=== PATIENT | male | born 1940 | race African-American/Black ===

== ENCOUNTER 2016-03-30 15:51 | Day surgery (SDC) | payer OTHER ==
[~2016-03-30] VITALS: Ht 172.7 cm; Wt 50.0 kg
[2016-03-31 06:36] VITALS: Ht 172.7 cm; Wt 50.0 kg
[2016-03-31] MEDS ORDERED: ACYC400T2 PO (06:47)
[2016-03-31] MEDS ORDERED: PRED10TA PO (06:47)
[2016-03-31] MEDS ORDERED: ASPI-664 PO (06:47)
[2016-03-31] MEDS ORDERED: MIRT-30 PO (06:47)
[2016-03-31] MEDS ORDERED: ATOR10TA65 PO (06:47)
[2016-03-31] MEDS ORDERED: EVER0.5T PO (06:47)
[2016-03-31] MEDS ORDERED: METO-448 PO (06:47)
[2016-03-31] MEDS ORDERED: CNC30T PO (06:47)
[2016-03-31] MEDS ORDERED: TACR1CAP26 PO (06:47)
--- NOTE | 2016-03-31 09:06 | OPR ---
DATE OF OPERATION: 03/30/2016 PREOPERATIVE DIAGNOSIS: 1. Renal failure. 2. Dysfunctional left upper extremity arteriovenous fistula. POSTOPERATIVE DIAGNOSIS: 1. Renal failure. 2. Dysfunctional left upper extremity arteriovenous fistula. OPERATION PERFORMED: 1. Angioplasty innominate vein, 14 x 40 mm balloon. 2. Angioplasty superior vena cava, 14 x 40 mm balloon. 3. Catheter introduction into the superior vena cava. 4. Interpretation and supervision of superior venacavogram. 5. Superior venacavogram. 6. Left upper extremity venogram and fistulogram. 7. Left upper extremity arteriogram. 8. Interpretation and supervision of the arteriogram and venogram and fistulogram. 9. Fluoroscopy. SURGEON: Giacomo Goff MD ANESTHESIA: Local plus IV sedation. CONSENT: Risks, benefits, complications, alternative therapies explained to the patient and the [facility], consent obtained. OPERATIVE TECHNIQUE: The patient was placed in supine position, prepped and draped in usual sterile fashion, 1% lidocaine was used throughout the operation for local anesthesia. Access was gained in the left arm AV fistula, 0.0145 guidewire was advanced without any difficulties and the microcathet er was advanced over a guidewire. A fistulogram was done. Interpretation and supervision of the fi stulogram revealed no evidence of stenosis in the left fistula, left basilic vein, axillary vein or subclavian vein. Catheter was advanced all the way up to the innominate vein and into the superior vena cava. A central venogram was done. 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 The wire was exchanged to a stiff wire and then a 14 x 40 mm balloon was passed over a guidewire and the superior vena cava and the innominate vein were angioplastied in 2 separate sites, up to 12 thai ospheres of pressure for 1 minute. The final venogram revealed less than 10% stenosis in the superi or vena cava and innominate vein. Arteriogram was also done, which showed patent arterial anastomos is. The catheter was removed and the exit site was closed using #3-0 Vicryl suture in [id number] fashion. Patient tolerated the procedure well. Dictated By: GIACOMO GOFF MD FM/NTS Conf#: [id number] [facility]#: [id number]
== END 2016-03-31 08:30 | disposition short-term general hospital (02) ==
LOC: CCL 15:51
PROVIDERS: ATTEND Thoracic Surgery (Cardiothoracic Vascular Surgery)
DX: T82.898A Other specified complication of vascular prosthetic devices, implants and grafts, initial encounter (principal); Y84.1 Kidney dialysis as the cause of abnormal reaction of the patient, or of later complication, without mention of misadventure at the time of the procedure; Y92.89 Other specified places as the place of occurrence of the external cause; I12.0 Hypertensive chronic kidney disease with stage 5 chronic kidney disease or end stage renal disease; N18.6 End stage renal disease; I25.10 Atherosclerotic heart disease of native coronary artery without angina pectoris; E78.5 Hyperlipidemia, unspecified; Z85.72 Personal history of non-Hodgkin lymphomas
CPT/HCPCS: 36902; C1769; C1887